=== PATIENT | male | born 1980 | race Hispanic/Latino ===

== ENCOUNTER 2022-10-21 18:53 | Emergency (ER) | payer OTHER ==
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
[2022-10-21] MEDS ORDERED: LIDOCAINE 1% MPF 5 ML VIAL ONE (19:22)
[2022-10-21] MEDS ORDERED: TDAP (DIPHTH,PERTUSS(ACELL),TET VAC) 0.5 ML VIAL IMVAC ONE (19:22)
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
[2022-10-21] MEDS ORDERED: DERMABOND SKIN ADHESIVE TOP ONE (20:42)
[2022-10-21] MEDS ORDERED: AMLODIPINE 5 MG TAB ONE (20:53)
[2022-10-21 21:18] VITALS: TEMP 98.4
[2022-10-21 21:21] VITALS: BP 173/106; O2SAT 97
== END 2022-10-21 21:08 | disposition home or self-care (01) ==
LOC: ER 18:53
PROC: 0HQ1XZZ Repair Face Skin, External Approach (ICD-10-PCS; principal; 2022-10-21)
DX: S01.81XA Laceration without foreign body of other part of head, initial encounter (principal); S60.222A Contusion of left hand, initial encounter; S60.221A Contusion of right hand, initial encounter; S09.90XA Unspecified injury of head, initial encounter; V29.498A Other motorcycle driver injured in collision with other motor vehicles in traffic accident, initial encounter; I10 Essential (primary) hypertension
CPT/HCPCS: 70450; 72125; 71045; 73090 ×2; 96372; 99285; 12014; J2001